=== PATIENT | female | born 1955 | race Caucasian/White ===

== ENCOUNTER → 2016-11-08 | Outpatient (CLI) | payer OTHER, BC ==
--- NOTE | 2016-11-08 19:08 | REP ---
MRI study of the cervical spine without contrast: History: Pain. Neck and right shoulder pain. Technique: Sagittal and axial T1 and T2-weighted scans are acquired in the usual fashion with and without fat saturation. Sequences include spin echo, turbo spin-echo, and STIR imaging sequences. MRI findings: There is straightening of the normal cervical lordosis. Cervical cord is normal in coarse, caliber and signal intensity on T1 and T2-weighted scans. Craniocervical junction is unremarkable. There are benign hemangioma is visible in the T4, T2, and C4 vertebral bodies. The largest of these is in the 4th thoracic vertebra measuring 12 mm in greatest diameter. Cortical and medullary bone signal intensity are otherwise normal. Axial and sagittal images show no significant abnormality at the C2-3 or C3-4 level. At C4-5 however, there is degenerative disc narrowing and bilateral uncovertebral spurring is seen, left greater than right producing neural foraminal narrowing. No central canal stenosis is seen. At C5-6, there is no significant finding. At C6-7 there is no evidence of neural foraminal narrowing, central canal stenosis or disc protrusion. C7-T1 level is unremarkable as well. Impression: Degenerative disc changes at C4-C5 with left greater than right sided uncovertebral spurring. Signed by Jude Sheehan MD 11/08/2016 07:40 P
== END ==
LOC: M RAD 15:19
PROVIDERS: ATTEND Neurological Surgery
DX: M47.892 Other spondylosis, cervical region (principal); M50.321 Other cervical disc degeneration at C4-C5 level